=== PATIENT | male | born 1985 | race Caucasian/White ===

== ENCOUNTER 2024-12-02 10:57 | Emergency (ER) | payer OTHER, BC ==
[2024-12-02] MEDS: Lidocaine 1% with EPINEPHrine 1:100,000 20 ML MDV INFILT ONE (11:19)
[2024-12-02] MEDS: Diphtheria,Pertussis(Acell),Tetanus Vaccine 0.5 ML Syringe IM ONE (11:41)
== END 2024-12-02 11:52 | disposition home or self-care (01) ==
LOC: VM.ED 10:57
DX: S61.212A Laceration without foreign body of right middle finger without damage to nail, initial encounter (principal); Z23 Encounter for immunization; W26.8XXA Contact with other sharp object(s), not elsewhere classified, initial encounter
CPT/HCPCS: 12001; 90471; 90715; 99282; J2004; 99283